=== PATIENT | male | born 1950 | race Caucasian/White ===

== ENCOUNTER 2019-02-23 14:15 | Emergency (ER) | payer OTHER ==
[2019-02-23] MEDS ORDERED: NA CHLORIDE 0.9% 1,000 ML ONE (15:14)
--- NOTE | 2019-02-23 16:13 | RAD REPORT ---
EXAM DESCRIPTION: CT - Soft Tissue Neck W/Contr - 02/23/2019 3:53 pm CLINICAL HISTORY: Neck pain and swelling COMPARISON: None. TECHNIQUE: Computed axial tomography of the neck was obtained. 50 cc Isovue 300 was administered in travenously. Coronal and sagittal reconstruction was performed. All CT scans are performed using dose optimization technique as appropriate and may include automated exposure control or mA/KV adjustment according to patient size. FINDINGS: The pharynx, tongue base, larynx and subglottic trachea appear unremarkable The right parotid gland is either very small or absent The left parotid gland is heterogeneous with increased density and mild stranding within the adjacent fat. Submandibular glands are unremarkable. 17 millimeter nodule left lobe of thyroid gland. Additional smaller thyroid nodules. No lymphadenopathy is seen The sinuses and mastoids are clear. IMPRESSION: Heterogeneous left parotid gland with mild stranding in the adjacent fat indicates siala denitis. Thyroid nodules. A nonemergent thyroid ultrasound recommended
--- NOTE | 2019-02-23 16:33 | ER ---
Nurse's Notes [facility] [place] Name: Mohan Benítez Age: 69 yrs Sex: Male : 1950 Arrival Date: 02/23/2019 Time: 14:17 Bed 19 Private MD: Jose Elias Hedrick R Diagnosis: Sialoadenitis Presentation: 02/23 14:22 Presenting complaint: Patient states: I was eating a while ago and something popped in sg my left side of my jaw, now there is some swelling to the left side of my face and it hurts a little bit. Transition of care: patient was not received from another setting of care. Onset of symptoms was February 23, 2019. Risk Assessment: Do you want to hurt yourself or someone else? Patient reports no desire to harm self or others. Initial Sepsis Screen: Does the patient meet any 2 criteria? No. Patient's initial sepsis screen is negative. Does the patient have a suspected source of infection? No. Patient's initial sepsis screen is negative. Care prior to arrival: None. 14:22 Method Of Arrival: Ambulatory sg 14:22 Acuity: AMBROSIO 4 sg 14:27 Acuity: AMBROSIO 3 aj1 Triage Assessment: 14:27 General: Appears in no apparent distress. aj1 Historical: - Allergies: 14:23 Codeine; sg 14:23 PENICILLINS; sg 14:23 Talwin; sg - Home Meds: 14:23 Invokana Oral [Active]; Levemir 100 unit/mL subcutaneous soln [Active]; Victoza 2-Maxwell sg 0.6 mg/0.1 mL (18 mg/3 mL) subcutaneous pnij 0.2 mL once daily [Active]; - PMHx: 14:23 Diabetes - IDDM; sg - PSHx: 14:23 Appendectomy; plate in head; ankle; sg - Immunization history:: Adult Immunizations not up to date. - Social history:: Smoking status: Patient/guardian denies using tobacco. - Ebola Screening: : Patient negative for fever greater than or equal to 101.5 degrees Fahrenheit, and additional compatible Ebola Virus Disease symptoms Patient denies exposure to infectious person Patient denies travel to an Ebola-affected area in the 21 days before illness onset No symptoms or risks identified at this time. Screenin:24 Abuse screen: Denies threats or abuse. Denies injuries from another. Nutritional aj1 screening: No deficits noted. Tuberculosis screening: No symptoms or risk factors identified. 17:02 Fall Risk None identified. aj1 Assessment: 14:24 General: Appears in no apparent distress. uncomfortable, Behavior is calm, cooperative, aj1 appropriate for age. Pain: Complains of pain in left jaw Pain does not radiate. Pain currently is 2 out of 10 on a pain scale. Quality of pain is described as aching, pressure. Neuro: Level of Consciousness is awake, alert, obeys commands, Oriented to person, place, time, situation. Cardiovascular: Patient's skin is warm and dry. Respiratory: Airway is patent Respiratory effort is even, unlabored, Respiratory pattern is regular, symmetrical, Breath sounds are clear bilaterally. GI: No signs and/or symptoms were reported involving the gastrointestinal system. : No signs and/or symptoms were reported regarding the genitourinary system. EENT: Redness and swelling noted to left jaw, extending toward left ear. Patient states that he noticed a little swelling earlier today but then when he went to eat the swelling got much worse, now that whole area feels hard.. Derm: No signs and/or symptoms reported regarding the dermatologic system. Skin is pink, warm \T\ dry. normal. Musculoskeletal: No signs and/or symptoms reported regarding the musculoskeletal system. Circulation, motion, and sensation intact. 15:36 Reassessment: Patient appears in no apparent distress at this time. No changes from aj1 previously documented assessment. Patient and/or family updated on plan of care and expected duration. Pain level reassessed. Patient is alert, oriented x 3, equal unlabored respirations, skin warm/dry/pink. 16:30 Reassessment: Patient appears in no apparent distress at this time. No changes from aj1 previously documented assessment. Patient and/or family updated on plan of care and expected duration. Pain level reassessed. Patient is alert, oriented x 3, equal unlabored respirations, skin warm/dry/pink. Vital Signs: 14:24 Temp 97.9; sg 14:24 BP 170 / 90; Pulse 69; Resp 18; Temp 98.3(TE); Pulse Ox 99% on R/A; aj1 15:36 BP 168 / 92; Pulse 72; Resp 18; Pulse Ox 99% on R/A; aj1 17:00 BP 172 / 76; Pulse 72; Resp 18; Pulse Ox 98% on R/A; aj1 ED Course: 14:17 Patient arrived in ED. mr 14:22 Jose Elias Hedrick MD is Private Physician. sg 14:23 Triage completed. sg 14:23 Brenda Martinez, RN is Primary Nurse. aj1 14:23 Arm band placed on. sg 14:24 Patient has correct armband on for positive identification. Bed in low position. Call aj1 light in reach. Side rails up X 1. 14:24 No provider procedures requiring assistance completed. aj1 14:26 [facility] Brock [facility]-C [facility]. kb 14:26 Collin Betts MD is Attending Physician. kb 14:27 Missed attempt(s): 22 gauge in right forearm. Bleeding controlled, band aid applied, aj1 catheter tip intact. 14:30 Inserted saline lock: 20 gauge in left forearm, using aseptic technique. aj1 15:[address] mw3 15:52 CT completed. Patient tolerated procedure well. Patient moved back from CT. mw3 15:53 CT Soft Tissue Neck W/contr In Process Unspecified. EDMS 16:32 Jose Elias Hedrick MD is Referral Physician. kb 17:01 IV discontinued, intact, bleeding controlled, No redness/swelling at site. Pressure aj1 dressing applied. Administered Medications: 15:19 Drug: NS 0.9% 1000 ml Route: IV; Rate: 1000 ml; Site: left forearm; aj1 17:00 Follow up: IV Status: Completed infusion; IV Intake: 1000ml aj1 Intake: 17:00 IV: 1000ml; Total: 1000ml. aj1 Outcome: 16:32 Discharge ordered by . kb 17:02 Discharged to home ambulatory, with family. aj1 17:02 Condition: good 17:02 Discharge instructions given to patient, Instructed on discharge instructions, follow up and referral plans. medication usage, Demonstrated understanding of instructions, follow-up care, medications, Prescriptions given X 1. 17:02 Patient left the ED. aj1 Signatures: Dispatcher [employer] EDAZ Ana Brock FNP-C FNP-Ckb Johnson, Angela, RN RN aj Doug Franz RN RN sg Rivera, Mary mr EverettRosemary mw3
--- NOTE | 2019-02-23 16:33 | EDPHYS ---
Physician Documentation [facility] Name: Mohan Benítez Age: 69 yrs Sex: Male : 1950 Arrival Date: 02/23/2019 Time: 14:17 Bed 19 Private MD: Jose Elias Hedrick R ED Physician Collin Betts HPI: 02/23 16:33 This 69 yrs old Male presents to ER via Ambulatory with complaints of Jaw kb Pain. 15:57 The symptoms are located on the left submandibular area. Onset: The symptoms/episode kb began/occurred just prior to arrival. Context: The problem was sustained at a restaurant, The neck injury/problem resulted from from unknown cause. Associated signs and symptoms: The patient has no apparent associated signs or symptoms. The pain does not radiate. Modifying factors: The symptoms are alleviated by nothing. the symptoms are aggravated by nothing. Severity of symptoms: At their worst the symptoms were moderate, in the emergency department the symptoms are unchanged. The patient has not experienced similar symptoms in the past. The patient has not recently seen a physician. Pt reports he felt a sensation of something crawling behind his ear around 9 or 10 this morning. Then at lunch he felt a popping sensation and his jaw/neck swelled up immediately. . 16:33 The patient or guardian complains of swelling. kb Historical: - Allergies: 14:23 Codeine; sg 14:23 PENICILLINS; sg 14:23 Talwin; sg - Home Meds: 14:23 Invokana Oral [Active]; Levemir 100 unit/mL subcutaneous soln [Active]; Victoza 2-Maxwell sg 0.6 mg/0.1 mL (18 mg/3 mL) subcutaneous pnij 0.2 mL once daily [Active]; - PMHx: 14:23 Diabetes - IDDM; sg - PSHx: 14:23 Appendectomy; plate in head; ankle; sg - Immunization history:: Adult Immunizations not up to date. - Social history:: Smoking status: Patient/guardian denies using tobacco. - Ebola Screening: : Patient negative for fever greater than or equal to 101.5 degrees Fahrenheit, and additional compatible Ebola Virus Disease symptoms Patient denies exposure to infectious person Patient denies travel to an Ebola-affected area in the 21 days before illness onset No symptoms or risks identified at this time. ROS: 15:57 Constitutional: Negative for fever, chills, and weight loss, ENT: Negative for injury, kb pain, and discharge, Cardiovascular: Negative for chest pain, palpitations, and edema, Respiratory: Negative for shortness of breath, cough, wheezing, and pleuritic chest pain, Abdomen/GI: Negative for abdominal pain, nausea, vomiting, diarrhea, and constipation, MS/Extremity: Negative for injury and deformity, Skin: Negative for injury, rash, and discoloration, Neuro: Negative for headache, weakness, numbness, tingling, and seizure. 15:57 Neck: Positive for swelling. Exam: 15:56 Constitutional: This is a well developed, well nourished patient who is awake, alert, kb and in no acute distress. Head/Face: Normocephalic, atraumatic. ENT: Nares patent. No nasal discharge, no septal abnormalities noted. Tympanic membranes are normal and external auditory canals are clear. Oropharynx with no redness, swelling, or masses, exudates, or evidence of obstruction, uvula midline. Mucous membranes moist. Chest/axilla: Normal chest wall appearance and motion. Nontender with no deformity. No lesions are appreciated. Cardiovascular: Regular rate and rhythm with a normal S1 and S2. No gallops, murmurs, or rubs. Normal PMI, no JVD. No pulse deficits. Respiratory: Lungs have equal breath sounds bilaterally, clear to auscultation and percussion. No rales, rhonchi or wheezes noted. No increased work of breathing, no retractions or nasal flaring. Abdomen/GI: Soft, non-tender, with normal bowel sounds. No distension or tympany. No guarding or rebound. No evidence of tenderness throughout. MS/ Extremity: Pulses equal, no cyanosis. Neurovascular intact. Full, normal range of motion. Neuro: Awake and alert, GCS 15, oriented to person, place, time, and situation. Cranial nerves II-XII grossly intact. Motor strength 5/5 in all extremities. Sensory grossly intact. Cerebellar exam normal. Normal gait. 15:56 Neck: External neck: swelling, that is moderate, of the left submandibular area. Vital Signs: 14:24 Temp 97.9; sg 14:24 BP 170 / 90; Pulse 69; Resp 18; Temp 98.3(TE); Pulse Ox 99% on R/A; aj1 15:36 BP 168 / 92; Pulse 72; Resp 18; Pulse Ox 99% on R/A; aj1 17:00 BP 172 / 76; Pulse 72; Resp 18; Pulse Ox 98% on R/A; aj1 MDM: 14:26 Patient medically screened. 15:56 Data reviewed: vital signs, nurses notes. Data interpreted: Pulse oximetry: on room air kb is 99 %. Interpretation: normal. 16:28 Counseling: I had a detailed discussion with the patient and/or guardian regarding: the kb historical points, exam findings, and any diagnostic results supporting the discharge/admit diagnosis, lab results, radiology results, the need for outpatient follow up, an ENT specialist, a family practitioner, to return to the emergency department if symptoms worsen or persist or if there are any questions or concerns that arise at home. 16:32 Special discussion: I discussed with the patient the need to follow-up with the PCP/specialist for the noted incidental finding on X-ray/CT scanning. 02/23 14:33 Order name: Creatinine for Radiology; Complete Time: 15:24 kb 02/23 15:25 Order name: CT Soft Tissue Neck W/contr; Complete Time: 16:20 kb 02/23 14:33 Order name: IV Start; Complete Time: 14:59 kb Administered Medications: 15:19 Drug: NS 0.9% 1000 ml Route: IV; Rate: 1000 ml; Site: left forearm; aj 17:00 Follow up: IV Status: Completed infusion; IV Intake: 1000ml [facility] Disposition: 22:13 Co-signature as Attending Physician, Collin Betts MD Available for consultation at ps1 all times . Disposition: 02/23/19 16:32 Discharged to Home. Impression: Sialoadenitis. - Condition is Stable. - Discharge Instructions: Parotitis, [id number]. - Prescriptions for Clindamycin HCl 300 mg Oral Capsule - take 1 capsule by ORAL route every 6 hours for 10 days; 40 capsule. - Medication Reconciliation Form, Thank You Letter, Antibiotic Education, Prescription Opioid Use form. - Follow up: Emergency Department; When: As needed; Reason: Worsening of condition. Follow up: Jose Elias Hedrick; When: 2 - 3 days; Reason: Recheck today's complaints, Continuance of care, Re-evaluation by your physician. Signatures: Dispatcher [employer] EDAna Cantu, SHACTOR-C SHACTOR-Brenda Garcia RN RN aj1 Doug Franz RN RN sg Collin Betts MD MD ps1 Corrections: (The following items were deleted from the chart) 17:02 16:32 02/23/2019 16:32 Discharged to Home. Impression: Sialoadenitis. Condition is aj1 Stable. Discharge Instructions: Parotitis, [id number]. Prescriptions for Clindamycin HCl 300 mg Oral Capsule - take 1 capsule by ORAL route every 6 hours for 10 days; 40 capsule. and Forms are Medication Reconciliation Form, Thank You Letter, Antibiotic Education, Prescription Opioid Use. Follow up: Emergency Department; When: As needed; Reason: Worsening of condition. Follow up: Jose Elias Hedrick; When: 2 - 3 days; Reason: Recheck today's complaints, Continuance of care, Re-evaluation by your physician. kb
== END 2019-02-23 17:02 | disposition home or self-care (01) ==
LOC: ER 14:15
DX: K11.20 Sialoadenitis, unspecified (principal); E11.9 Type 2 diabetes mellitus without complications; Z79.4 Long term (current) use of insulin; Z88.5 Allergy status to narcotic agent; Z88.0 Allergy status to penicillin
CPT/HCPCS: 96361; 36415; 70491; 96360; 99284; Q9967; J7030

== ENCOUNTER 2019-11-14 15:07 | Inpatient (IN) | payer OTHER ==
[2019-11-14] MEDS ORDERED: NA CHLORIDE 0.9% 1,000 ML ONE ×3 (16:38→20:01)
[2019-11-14 16:39] LABS: Urine Blood 2+ (NEG); Urine Glucose NEGATIVE (NEG); Urine Protein 3+ (NEG); Urine Specific Gravity 1.015 (1.005-1.030)
[2019-11-14 16:58] LABS: Urine Bacteria 20-50 /HPF (NONE SEEN); Urine Culture Reflex Order REFLEXED
[2019-11-14 16:59] LABS: Basophils % 0.2 % (0-1.3); Hematocrit 43.3 % (39.6-49.0); Lymphocytes % 4.3 % (15.3-44.8); MPV 9.7 fL (7.6-11.3); RBC Red Blood Cell Count 4.95 M/uL (4.33-5.43)
[2019-11-14] MEDS ORDERED: CEFTRIAXONE/SWI 1gm 1 GM/10 ML SYR ONE (17:22)
[2019-11-14 17:24] LABS: Blood Morphology Comment NOT SEEN (NOT SEEN); Platelet Estimate DECR; Toxic Granulation 1+
[2019-11-14 17:25] LABS: Albumin 3.5 g/dL (3.4-5.0); Bilirubin Direct 0.2 mg/dL (0-0.2); Bilirubin Total 0.7 mg/dL (0.2-1.0); Potassium 4.8 mmol/L (3.5-5.1); Protein, Total 7.4 g/dL (6.4-8.2)
--- NOTE | 2019-11-14 17:37 | RAD REPORT ---
EXAM DESCRIPTION: CT - Stone Protocol - 11/14/2019 5:25 pm CLINICAL HISTORY: Flank pain. dysuria, back pain COMPARISON: No comparisons TECHNIQUE: Axial images were obtained without oral or IV contrast. Lack of contrast limits solid org an and vascular assessment. The [id number] spans the entirety of the system partially obscuring uppermost abdomen and lung bases. Coronal reformatted images were obtained and reviewed. All CT scans are performed using dose optimization technique as appropriate and may include automated exposure control or mA/KV adjustment according to patient size. FINDINGS: Linear subsegmental atelectasis is present in the right lung base. Imaged portions of the liver and spleen show no suspicious findings on non-contrast imaging. The panc reas and adrenal glands are normal. No pathologic lymphadenopathy in the abdomen or pelvis. No urinary tract stones or obstructive uropathy. No bowel obstruction, free air, free fluid or abscess. The appendix is not identified as a discrete s tructure, however, no secondary findings of appendicitis are identified. Left femoral intramedullary nelly is present. IMPRESSION: No urinary tract stones or obstructive uropathy.
--- NOTE | 2019-11-14 19:44 | ER ---
Nurse's Notes [facility] Name: Mohan Benítez Age: 69 yrs Sex: Male : 1950 Arrival Date: 11/14/2019 Time: 15:10 Bed 5 Private MD: Jose Elias Hedrick R Diagnosis: Urinary tract infection, site not specified;Other sepsis Presentation: 11/14 15:21 Presenting complaint: Patient states: pain with urination since yesterday, pain to back iw , fever of 104 today. Transition of care: patient was not received from another setting of care. Onset of symptoms was November 13, 2019. Risk Assessment: Do you want to hurt yourself or someone else? Patient reports no desire to harm self or others. Initial Sepsis Screen: Does the patient meet any 2 criteria? HR > 90 bpm. Does the patient have a suspected source of infection?. Care prior to arrival: None. 15:21 Method Of Arrival: Ambulatory iw 15:21 Acuity: AMBROSIO 3 iw Historical: - Allergies: 15:23 Codeine; iw 15:23 PENICILLINS; iw 15:23 Talwin; iw 15:23 Prednisone; iw - Home Meds: 15:23 Xarelto oral oral [Active]; Levemir 100 unit/mL subcutaneous soln [Active]; Trulicity iw subcutaneous subcutaneous [Active]; - PMHx: 15:23 Diabetes - IDDM; PE; iw - PSHx: 15:23 Appendectomy; plate in head; ankle; iw - Immunization history:: Adult Immunizations up to date. - Social history:: Smoking status: Patient denies any tobacco usage or history of. - Ebola Screening: : Patient negative for fever greater than or equal to 101.5 degrees Fahrenheit, and additional compatible Ebola Virus Disease symptoms Patient denies exposure to infectious person Patient denies travel to an Ebola-affected area in the 21 days before illness onset No symptoms or risks identified at this time. Screenin:38 Abuse screen: Denies threats or abuse. Denies injuries from another. Nutritional hb screening: No deficits noted. Tuberculosis screening: No symptoms or risk factors identified. Fall Risk None identified. Assessment: 16:20 General: Appears in no apparent distress. uncomfortable, Behavior is calm, cooperative, em Reports fever for 0-12 hours. Pain: Complains of pain in pelvis Pain currently is 6 out of 10 on a pain scale. Neuro: Level of Consciousness is awake, alert, obeys commands, Oriented to person, place, time, situation, Appropriate for age. Cardiovascular: Capillary refill < 3 seconds Patient's skin is warm and dry. Respiratory: Airway is patent Respiratory effort is even, unlabored, Respiratory pattern is regular, symmetrical. GI: Abdomen is flat, Reports nausea, Patient currently denies vomiting. : Reports burning with urination, since this morning. Derm: Skin is intact, is healthy with good turgor, Skin is pink, warm \T\ dry. Musculoskeletal: Capillary refill < 3 seconds, Range of motion: intact in all extremities. 17:35 Reassessment: Patient appears in no apparent distress at this time. Patient and/or tw2 family updated on plan of care and expected duration. Pain level reassessed. Patient is alert, oriented x 3, equal unlabored respirations, skin warm/dry/pink. Patient states feeling better. 18:24 Reassessment: Patient appears in no apparent distress at this time. Patient and/or tw2 family updated on plan of care and expected duration. Pain level reassessed. Patient is alert, oriented x 3, equal unlabored respirations, skin warm/dry/pink. Patient states feeling better. 19:00 Reassessment: Patient appears in no apparent distress at this time. Patient and/or rv family updated on plan of care and expected duration. Pain level reassessed. Patient is alert, oriented x 3, equal unlabored respirations, skin warm/dry/pink. 21:00 Reassessment: Patient appears in no apparent distress at this time. Patient and/or rv family updated on plan of care and expected duration. Pain level reassessed. Patient is alert, oriented x 3, equal unlabored respirations, skin warm/dry/pink. 23:37 Reassessment: Patient appears in no apparent distress at this time. Patient and/or rv family updated on plan of care and expected duration. Pain level reassessed. Patient is alert, oriented x 3, equal unlabored respirations, skin warm/dry/pink. Vital Signs: 15:23 BP 142 / 63; Pulse 101; Resp 16; Temp 99.9; Pulse Ox 98% on R/A; Weight 100.7 kg; iw Height 5 ft. 7 in. (170.18 cm); 16:43 BP 141 / 72; Pulse 83; Resp 16; Pulse Ox 97% on R/A; em 18:23 BP 140 / 66; Pulse 74; Resp 17; Pulse Ox 100% on R/A; tw2 20:00 BP 134 / 59; Pulse 83; Resp 17; Pulse Ox 99% on R/A; rv 21:00 BP 136 / 66; Pulse 81; Resp 17; Pulse Ox 98% on R/A; rv 22:00 BP 139 / 68; Pulse 89; Resp 17; Pulse Ox 99% on R/A; rv 23:00 BP 141 / 66; Pulse 91; Resp 17; Pulse Ox 99% on R/A; rv 11/15 00:00 BP 131 / 64; Pulse 81; Resp 17; Pulse Ox 99% on R/A; rv 00:54 BP 128 / 66; Pulse 84; Resp 15; Pulse Ox 99% on R/A; rv 11/14 15:23 Body Mass Index 34.77 (100.70 kg, 170.18 cm) iw ED Course: 11/14 15:10 Patient arrived in ED. mr 15:11 Jose Elias Hedrick MD is Private Physician. mr 15:22 Triage completed. iw 16:08 Juancarlos Torres PA is PHCP. cp 16:08 Florin Burdick MD is Attending Physician. cp 16:23 Romeo Bonds, RN is Primary Nurse. em 16:35 Patient has correct armband on for positive identification. Bed in low position. Call em light in reach. Adult w/ patient. Pulse ox on. NIBP on. 16:37 Urine collected: clean catch specimen, cloudy. em 16:38 Arm band placed on. hb 16:40 Initial lab(s) drawn, by me, sent to lab. Inserted saline lock: 20 gauge in left em forearm, using aseptic technique. Blood collected. 16:40 Flu and/or RSV swab sent to lab. em 17:25 CT Stone Protocol In Process Unspecified. EDMS 18:39 First set of blood cultures drawn by me, Second set of blood cultures drawn by me. jp3 19:42 Jose Elias Hedrick MD is Hospitalizing Provider. cp 23:07 Attending Physician role handed off by Florin Burdick MD chun 23:07 Juancarlos Sanchez MD is Attending Physician. [facility] 11/15 00:55 No provider procedures requiring assistance completed. Patient admitted, IV remains in rv place. Administered Medications: 11/14 16:50 Drug: NS 0.9% 500 ml Route: IV; Rate: bolus; Site: left forearm; em 20:16 Follow up: IV Status: Completed infusion; IV Intake: 1000ml rv 16:50 Drug: NS 0.9% 500 ml Route: IV; Rate: 500 ml/hr; Site: left forearm; em 20:16 Follow up: IV Status: Completed infusion rv 17:11 CANCELLED (Physician Discretion): Rocephin 1 grams IV at bolus once; Given slow IV push cp per pharmacy instructions 17:35 Drug: Rocephin - (cefTRIAXone) 1 grams {Note: ivp available only.} Route: IVPB; Infused tw2 Over: 5 mins; Site: left antecubital; 20:01 Follow up: IV Status: Completed infusion rv 18:32 Drug: NS 0.9% 1000 ml Route: IV; Rate: 1000 ml/hr; Site: right antecubital; hb 20:16 Follow up: IV Status: Completed infusion; IV Intake: 1000ml rv 20:01 Drug: Bactrim (160 mg-800 mg (DS) 1 tablet Route: PO; rv 23:04 Follow up: Response: No adverse reaction rv 20:01 Drug: NS 0.9% 1000 ml Route: IV; Rate: 1 bolus; Site: left forearm; rv 23:04 Follow up: IV Status: Completed infusion rv Intake: 20:16 IV: 1000ml; Total: 1000ml. rv 20:16 IV: 1000ml; Total: 2000ml. rv Outcome: 19:43 Decision to Hospitalize by Provider. cp 11/15 00:55 Admitted to Tele accompanied by tech, via wheelchair, room 405, with chart, Report rv called to [facility] Condition: good Discharge instructions given to patient, family, Instructed on the need for admit, Demonstrated understanding of instructions. 00:55 Patient left the ED. rv Signatures: Dispatcher [employer] Juancarlos Dixon MD MD cha Rivera, Mary BondsRomeo RN RN em Williams, Irene, RN RN iw Page, Corey, LESLIE PA cp Jennifer Malonye RN RN Asia Damon RN RN tw2 King Mahajan RN RN rv Pan Conway jp3
--- NOTE | 2019-11-14 19:44 | EDPHYS ---
Physician Documentation [facility] Name: Mohan Benítez Age: 69 yrs Sex: Male : 1950 Arrival Date: 11/14/2019 Time: 15:10 Bed 5 Private MD: Jose Elias Hedrick R ED Physician Juancarlos Sanchez HPI: 11/14 16:25 This 69 yrs old Male presents to ER via Ambulatory with complaints of Urinary cp Problem, Fever. 16:25 The patient presents with urinary symptoms, dysuria, urinary frequency. cp 16:25 Onset: The symptoms/episode began/occurred yesterday. cp 16:25 Associated signs and symptoms: Pertinent positives: fever, low back pain, Pertinent cp negatives: abdominal pain, constipation, diarrhea, vomiting. Severity of symptoms: in the emergency department the symptoms are unchanged, despite home interventions. Historical: - Allergies: 15:23 Codeine; iw 15:23 PENICILLINS; iw 15:23 Talwin; iw 15:23 Prednisone; iw - Home Meds: 15:23 Xarelto oral oral [Active]; Levemir 100 unit/mL subcutaneous soln [Active]; Trulicity iw subcutaneous subcutaneous [Active]; - PMHx: 15:23 Diabetes - IDDM; PE; iw - PSHx: 15:23 Appendectomy; plate in head; ankle; iw - Immunization history:: Adult Immunizations up to date. - Social history:: Smoking status: Patient denies any tobacco usage or history of. - Ebola Screening: : Patient negative for fever greater than or equal to 101.5 degrees Fahrenheit, and additional compatible Ebola Virus Disease symptoms Patient denies exposure to infectious person Patient denies travel to an Ebola-affected area in the 21 days before illness onset No symptoms or risks identified at this time. ROS: 16:30 Constitutional: Negative for body aches, chills, fever, poor PO intake. cp 16:30 Eyes: Negative for injury, pain, redness, and discharge. cp 16:30 ENT: Negative for drainage from ear(s), ear pain, sore throat, difficulty swallowing, difficulty handling secretions. 16:30 Cardiovascular: Negative for chest pain, edema. 16:30 Respiratory: Negative for cough, shortness of breath, wheezing. 16:30 Abdomen/GI: Positive for abdominal pain, Negative for nausea, vomiting, diarrhea, constipation, anorexia, black/tarry stool. 16:30 Back: Positive for pain at rest, pain with movement, Negative for injury or acute deformity, decreased range of motion. 16:30 : Positive for urinary frequency, burning with urination, Negative for hematuria, difficulty urinating, testicular pain 16:30 Skin: Negative for cellulitis, rash. 16:30 Neuro: Negative for altered mental status, dizziness, headache, weakness. 16:30 All other systems are negative. Exam: 16:35 Constitutional: The patient appears in no acute distress, alert, awake, cp non-diaphoretic, non-toxic, well developed, well nourished. 16:35 Head/Face: Normocephalic, atraumatic. cp 16:35 Eyes: Periorbital structures: appear normal, Conjunctiva: normal, no exudate, no injection, Sclera: no appreciated abnormality, Lids and lashes: appear normal, bilaterally. 16:35 ENT: External ear(s): are unremarkable, Nose: is normal, Mouth: Lips: moist, Oral mucosa: pink and intact, moist, Posterior pharynx: is normal, airway is patent, no erythema, no exudate. 16:35 Neck: ROM/movement: is normal, is supple, without pain, no range of motions limitations, no nuchal rigidity. 16:35 Chest/axilla: Inspection: normal, Palpation: is normal, no crepitus, no tenderness. 16:35 Cardiovascular: Rate: tachycardic, Rhythm: regular, Heart sounds: murmur, not appreciated, Edema: is not appreciated, JVD: is not appreciated. 16:35 Respiratory: the patient does not display signs of respiratory distress, Respirations: normal, no use of accessory muscles, no retractions, no splinting, no tachypnea, labored breathing, is not present, Breath sounds: are clear throughout, no decreased breath sounds, no stridor, no wheezing. 16:35 Abdomen/GI: Inspection: abdomen appears normal, Bowel sounds: active, all quadrants, Palpation: soft, in all quadrants, mild abdominal tenderness, in the suprapubic area, rebound tenderness, is not appreciated, voluntary guarding, is not appreciated, involuntary guarding, is not appreciated. 16:35 Back: pain, that is mild, of the low back area, ROM is normal, Straight leg raises: of both lower extremities does not illicit pain. 16:35 Skin: no rash present. 16:35 Neuro: Orientation: to person, place \T\ time. Mentation: is normal, Motor: moves all fours, strength is normal, Sensation: is normal, Gait: is steady. Vital Signs: 15:23 BP 142 / 63; Pulse 101; Resp 16; Temp 99.9; Pulse Ox 98% on R/A; Weight 100.7 kg; iw Height 5 ft. 7 in. (170.18 cm); 16:43 BP 141 / 72; Pulse 83; Resp 16; Pulse Ox 97% on R/A; em 18:23 BP 140 / 66; Pulse 74; Resp 17; Pulse Ox 100% on R/A; tw2 20:00 BP 134 / 59; Pulse 83; Resp 17; Pulse Ox 99% on R/A; rv 21:00 BP 136 / 66; Pulse 81; Resp 17; Pulse Ox 98% on R/A; rv 22:00 BP 139 / 68; Pulse 89; Resp 17; Pulse Ox 99% on R/A; rv 23:00 BP 141 / 66; Pulse 91; Resp 17; Pulse Ox 99% on R/A; rv 11/15 00:00 BP 131 / 64; Pulse 81; Resp 17; Pulse Ox 99% on R/A; rv 00:54 BP 128 / 66; Pulse 84; Resp 15; Pulse Ox 99% on R/A; rv 11/14 15:23 Body Mass Index 34.77 (100.70 kg, 170.18 cm) iw MDM: 11/14 16:12 Patient medically screened. 17:00 Differential diagnosis: nonspecific abdominal pain, appendicitis, UTI, prostatitis, cp urethritis, sepsis. 19:40 Physician consultation: Jose Elias Hedrick MD was called at 19:40, left message on voicemail. 19:45 Data reviewed: vital signs, nurses notes, lab test result(s), radiologic studies, CT cp scan. 19:48 Physician consultation: Jose Elias Hedrick MD was contacted at 19:41, regarding admission, to the telemetry unit. patient's condition, wants oral Bactrim to be given with IV Rocephin and will accept patient for admission. 11/14 16:22 Order name: Basic Metabolic Panel; Complete Time: 17:53 cp 11/14 17:53 Interpretation: Normal except: GLUC 153; GFR 59. cp 11/14 16:22 Order name: CBC with Diff; Complete Time: 17:53 cp 11/14 17:58 Interpretation: Normal except: WBC 22.5; JOAO% 89.1; LYM% 4.3; NEUT A 20.1; MNA 1.5. cp 11/14 16:22 Order name: Creatinine for Radiology; Complete Time: 17:12 cp 11/14 19:39 Interpretation: Normal except: GFR 57. cp 11/14 16:22 Order name: Hepatic Function; Complete Time: 17:53 cp 11/14 16:22 Order name: Lipase; Complete Time: 17:53 cp 11/14 16:22 Order name: Urine Microscopic Only; Complete Time: 17:09 cp 11/14 17:10 Interpretation: Normal except: UWBC 20-50; URBC 5-10; UBACT 20-50. cp 11/14 16:22 Order name: Influenza Screen (a \T\ B); Complete Time: 17:53 cp 11/14 16:35 Order name: Urine Dipstick--Ancillary (enter results); Complete Time: 17:09 em1 11/14 17:10 Interpretation: Normal except: UBLD 2+; UPROT 3+; UESTR 1+. cp 11/14 17:01 Order name: Urine Culture EDSD 11/14 17:24 Order name: Manual Differential; Complete Time: 17:53 EDMS 11/14 17:56 Order name: Procalcitonin; Complete Time: 19:38 cp 11/14 19:38 Interpretation: Reviewed. cp 11/14 17:56 Order name: Lactate; Complete Time: 19:04 cp 11/14 17:58 Order name: Blood Culture Adult (2) cp 11/15 00:42 Order name: Basic Metabolic Panel EDMS 11/14 17:11 Order name: CT Stone Protocol; Complete Time: 17:53 cp 11/15 00:42 Order name: Regular EDMS 11/15 00:42 Order name: Basic Metabolic Panel EDMS 11/15 00:42 Order name: CBC with Automated Diff EDMS 11/15 00:42 Order name: CBC with Automated Diff EDMS 11/15 00:42 Order name: Lipase EDMS 11/15 00:42 Order name: Lipase EDMS 11/15 00:42 Order name: Liver (Hepatic) Function EDSD 11/15 00:42 Order name: Liver (Hepatic) Function EDSD 11/14 16:22 Order name: IV Saline Lock; Complete Time: 16:51 cp 11/14 16:22 Order name: Labs collected and sent; Complete Time: 16:51 cp 11/14 16:22 Order name: Urine Dipstick-Ancillary (obtain specimen); Complete Time: 16:34 cp Administered Medications: 16:50 Drug: NS 0.9% 500 ml Route: IV; Rate: bolus; Site: left forearm; em 20:16 Follow up: IV Status: Completed infusion; IV Intake: 1000ml rv 16:50 Drug: NS 0.9% 500 ml Route: IV; Rate: 500 ml/hr; Site: left forearm; em 20:16 Follow up: IV Status: Completed infusion rv 17:11 CANCELLED (Physician Discretion): Rocephin 1 grams IV at bolus once; Given slow IV push cp per pharmacy instructions 17:35 Drug: Rocephin - (cefTRIAXone) 1 grams {Note: ivp available only.} Route: IVPB; Infused tw2 Over: 5 mins; Site: left antecubital; 20:01 Follow up: IV Status: Completed infusion rv 18:32 Drug: NS 0.9% 1000 ml Route: IV; Rate: 1000 ml/hr; Site: right antecubital; hb 20:16 Follow up: IV Status: Completed infusion; IV Intake: 1000ml rv 20:01 Drug: Bactrim (160 mg-800 mg (DS) 1 tablet Route: PO; rv 23:04 Follow up: Response: No adverse reaction rv 20:01 Drug: NS 0.9% 1000 ml Route: IV; Rate: 1 bolus; Site: left forearm; rv 23:04 Follow up: IV Status: Completed infusion rv Disposition: 11/15 09:26 Co-signature as Attending Physician, Juancarlos Sanchez MD I agree with the assessment and chun plan of care. Disposition: 11/14/19 19:43 Hospitalization ordered by Jose Elias Hedrick for Inpatient Admission. Preliminary diagnosis are Urinary tract infection, site not specified, Other sepsis. - Bed requested for Telemetry/MedSurg (Inpatient). - Status is Inpatient Admission. rv - Condition is Stable. - Problem is new. - Symptoms have improved. UTI on Admission? Yes Signatures: Dispatcher [employer] Juancarlos Dixon MD MD cha Munoz, Edgar, RN RN Joyce Monteiro, RN Juancarlos Pradhan PA PA cp Jennifer Maloney, RN RN Asia Damon RN RN tw2 King Mahajan, PARADISE RN GonzalezYina ar5 Corrections: (The following items were deleted from the chart) 11/14 17:11 17:11 Rocephin 1 grams IV at bolus once; Given slow IV push per pharmacy instructions cp ordered. cp 17:58 17:57 Normal except: WBC 22.5; JOAO% 89.1; LYM% 4.3. cp cp 19:46 19:43 Hospitalization Ordered by Jose Elias Hedrick MD for Inpatient Admission. Preliminary cp diagnosis is Urinary tract infection, site not specified. Bed requested for Telemetry/MedSurg (Inpatient). Status is Inpatient Admission. Condition is Stable. Problem is new. Symptoms have improved. UTI on Admission? Yes. cp 11/15 00:25 11/14 19:46 11/14/2019 19:43 Hospitalization Ordered by Jose Elias Hedrick MD for Inpatient ar5 Admission. Preliminary diagnosis is Urinary tract infection, site not specified; Other sepsis. Bed requested for Telemetry/MedSurg (Inpatient). Status is Inpatient Admission. Condition is Stable. Problem is new. Symptoms have improved. UTI on Admission? Yes. cp 11/15 00:55 00:25 11/14/2019 19:43 Hospitalization Ordered by Jose Elias Hedrick MD for Inpatient rv Admission. Preliminary diagnosis is Urinary tract infection, site not specified; Other sepsis. Bed requested for Telemetry/MedSurg (Inpatient). Status is Inpatient Admission. Condition is Stable. Problem is new. Symptoms have improved. UTI on Admission? Yes. ar5
[2019-11-14] MEDS ORDERED: SMZ./TMP. 800/160 MG TABLET ONE (20:01)
[2019-11-15] MEDS ORDERED: CEFTRIAXONE 1 GM/NS 50 ML 1 GM/50 ML BAG IV SCH (00:37)
[2019-11-15] MEDS ORDERED: ONDANSETRON 4 MG/2 ML VIAL IV PRN (00:37)
[2019-11-15] MEDS ORDERED: SMZ./TMP. 800/160 MG TABLET PO SCH (00:37)
[2019-11-15] MEDS ORDERED: ACETAMINOPHEN 500 MG TAB PO PRN (00:37)
[2019-11-15 01:28] VITALS: BMI 36.8
[2019-11-15] MEDS: NA CHLORIDE 0.9% 1,000 ML IV SCH ×2 (01:37→09:53)
[2019-11-15] MEDS: CEFTRIAXONE/SWI 1gm 1 GM/10 ML SYR IV SCH ×2 (05:11→16:51)
[2019-11-15 07:36] LABS: Absolute Lymphocytes (CBC) 0.7 K/uL (0.7-4.9); Basophils % 0.3 % (0-1.3); Hematocrit 38.8 % (39.6-49.0); Lymphocytes % 3.8 % (15.3-44.8); MPV 9.5 fL (7.6-11.3); RBC Red Blood Cell Count 4.35 M/uL (4.33-5.43)
[2019-11-15] MEDS ORDERED: D50W 25 GM/50 ML SYRINGE/VIAL IV PRN (07:45)
[2019-11-15] MEDS ORDERED: GLUCAGON 1 MG/VIAL IM PRN (07:45)
[2019-11-15 07:57] LABS: Albumin 2.7 g/dL (3.4-5.0); Bilirubin Direct 0.2 mg/dL (0-0.2); Bilirubin Total 0.6 mg/dL (0.2-1.0); Potassium 3.7 mmol/L (3.5-5.1)
[2019-11-15] MEDS: INSULIN -REGULAR HUMAN 50 UNIT/0.5 ML ML SQ SCH ×4 (08:00→21:22)
[2019-11-15] MEDS: SMZ./TMP. 800/160 MG TABLET PO SCH ×2 (08:01→21:22)
[2019-11-15] MEDS: RIVAROXABAN 10 MG TABLET PO SCH (08:01)
--- NOTE | 2019-11-15 09:39 | HP ---
Date of Admission: 11/15/2019 Chief Complaint: Dysuria, fever. History Of Present Illness: A 69-year-old, known diabetic, who was brought to the emergency room wit h dysuria and temperature of 104. Patient had workup done in the emergency room, showing evidence of urinary tract infection with a white count of 22,000. CAT scan did not show any obstructive uropath y. Patient is admitted for IV antibiotic therapy. Past Medical History: Positive for type 2 diabetes, requiring insulin and history of pulmonary embol ism. Past Surgical History: Positive for ankle surgery and appendectomy. Allergies: MULTIPLE INCLUDES CODEINE, PENICILLIN, TALWIN. Review of Systems: Patient denied any history of chest pain or shortness of breath. Family History: Noncontributory. Personal History: Nonsmoker. Home Medicines: Please refer to the chart. Physical Examination: General: Revealed a 69-year-old male, febrile. HEENT: Negative. Neck: Supple. JVD negative. Chest: Clear. Heart: Regular. Abdomen: Soft. Extremities: No edema. Laboratory: White count 22,000. Kidney function normal. Assessment: 1.Probable severe prostatitis. 2.Type 2 diabetes. 3.History of hyperlipidemia. Plan: IV Rocephin, oral Bactrim, pending the culture and sensitivity report. Fingerstick blood suga rs and insulin coverage. RRK/MODL Voice ID: [id number]
[2019-11-16] MEDS: CEFTRIAXONE/SWI 1gm 1 GM/10 ML SYR IV SCH ×2 (05:14→16:46)
[2019-11-16 08:34] LABS: Basophils % 0.3 % (0-1.3); Hematocrit 36.2 % (39.6-49.0); Lymphocytes % 5.8 % (15.3-44.8); MPV 9.9 fL (7.6-11.3); RBC Red Blood Cell Count 4.07 M/uL (4.33-5.43)
[2019-11-16] MEDS: INSULIN -REGULAR HUMAN 50 UNIT/0.5 ML ML SQ SCH ×4 (08:52→20:40)
[2019-11-16] MEDS: RIVAROXABAN 10 MG TABLET PO SCH (08:53)
[2019-11-16] MEDS: TAMSULOSIN 0.4 MG SR CAP PO SCH (20:40)
--- NOTE | 2019-11-16 21:46 | PN ---
Patient's temperature has come down. He is feeling better. He still has dysuria. His white cell co unt has come down to 16,000. In view of this, he will be continued on IV Rocephin. Urine cultures a re positive for E coli. Blood cultures negative. Patient will have repeat CBC and once white count is normal, he will be discharged on oral antibiotics for 2 weeks. LUPE/JOSELINE Voice ID: [id number] Report ID: [id number]
[2019-11-17] MEDS: CEFTRIAXONE/SWI 1gm 1 GM/10 ML SYR IV SCH ×2 (05:28→16:28)
[2019-11-17] MEDS: INSULIN -REGULAR HUMAN 50 UNIT/0.5 ML ML SQ SCH ×4 (07:50→20:59)
[2019-11-17] MEDS: RIVAROXABAN 10 MG TABLET PO SCH (07:51)
[2019-11-17] MEDS: HYDRALAZINE HCL 20 MG/ML VIAL IV PRN (11:56)
[2019-11-17] MEDS: ACYCLOVIR 400 MG TABLET PO SCH (20:59)
[2019-11-17] MEDS: TAMSULOSIN 0.4 MG SR CAP PO SCH (20:59)
--- NOTE | 2019-11-17 23:59 | PN ---
Patient is doing better. He still has dysuria. However, he is afebrile. Blood pressure has been fl uctuant. The hydralazine has been ordered. Patient will have repeat CBC and if the white count look s normal, he will be discharged on oral antibiotic to have outpatient followup. LUPE/JOSELINE Voice ID: [id number] Report ID: [id number]
[2019-11-18] MEDS: CEFTRIAXONE/SWI 1gm 1 GM/10 ML SYR IV SCH (04:35)
[2019-11-18] MEDS: HYDRALAZINE HCL 20 MG/ML VIAL IV PRN (05:03)
[2019-11-18 06:16] LABS: Absolute Lymphocytes (CBC) 0.9 K/uL (0.7-4.9); Basophils % 0.7 % (0-1.3); Hematocrit 37.7 % (39.6-49.0); MPV 9.9 fL (7.6-11.3); RBC Red Blood Cell Count 4.32 M/uL (4.33-5.43)
[2019-11-18 07:34] VITALS: O2SAT 98
[2019-11-18] MEDS: INSULIN -REGULAR HUMAN 50 UNIT/0.5 ML ML SQ SCH (08:07)
[2019-11-18] MEDS: ACYCLOVIR 400 MG TABLET PO SCH (08:08)
[2019-11-18] MEDS: RIVAROXABAN 10 MG TABLET PO SCH (08:08)
[2019-11-18 10:26] VITALS: BP 154/67; TEMP 97.2
== END 2019-11-18 10:18 | disposition home or self-care (01) | DRG 690 ==
LOC: ER 15:07 → 4TH 11-15 00:37
PROVIDERS: ADMIT Internal Medicine; ATTEND Internal Medicine
DX: N39.0 Urinary tract infection, site not specified (principal); B96.20 Unspecified Escherichia coli [E. coli] as the cause of diseases classified elsewhere; E11.9 Type 2 diabetes mellitus without complications; E78.5 Hyperlipidemia, unspecified; N41.9 Inflammatory disease of prostate, unspecified; Z86.711 Personal history of pulmonary embolism; Z88.0 Allergy status to penicillin
CPT/HCPCS: 36415; 74176; 76377; 80048; 80076; 81003; 81015; 82947; 83605; 83690; 84145; 85025; 87040; 87077; 87086; 87088; 87186; 87804; 96361; 96365; 96366; 99285; J0360; J0696; J7030